=== PATIENT | male | born 1975 | race Caucasian/White ===

== ENCOUNTER 2019-12-15 11:53 | Emergency (ER) | payer MEDICAID ==
[~2019-12-15] VITALS: Ht 190.5 cm; Wt 93.0 kg
[2019-12-15 12:05] VITALS: BP_SYST 132
[2019-12-15] MEDS ORDERED: KETOROLAC TROMETHAMINE 60 MG/2 ML VIAL IM ONE (14:15)
[2019-12-15 14:40] VITALS: BP_SYST 134
== END 2019-12-15 14:40 | disposition home or self-care (01) ==
LOC: SED 11:53
DX: L03.115 Cellulitis of right lower limb (principal); F15.90 Other stimulant use, unspecified, uncomplicated; F17.200 Nicotine dependence, unspecified, uncomplicated
CPT/HCPCS: 96372; 99283; J1885